=== PATIENT | female | born 2000 | race Caucasian/White ===

== ENCOUNTER 2021-11-07 12:46 | Inpatient (IN) | payer SELFPAY ==
[2021-11-07 12:46] VITALS: BP 115/74; PULSE 56; RESP 14; TEMP 36.6; O2SAT 100
[2021-11-07 12:48] VITALS: BMI 21.4
[2021-11-07] MEDS: hyDROXYzine 25 mg Capsule 50 MG PO (13:07)
[2021-11-07 14:00] VITALS: BP 115/74; PULSE 56; RESP 14; TEMP 36.6
[2021-11-07] MEDS: cephALEXin 500 mg Capsule PO (17:30)
--- NOTE | 2021-11-07 18:08 | PC.NURSE ---
PT WAS TEARFUL UPON ADMISSION TO THE NPU. PT RECEIVED VISTERIL. AFTERWARD PT WAS RESTING IN BED. DURING GROUP PT EXPRESSED THIS HELPED HER. THIS AFTERNOON PT TALKED TO HER MOTHER ON THE PHONE AND PT TOLD THIS NURSE THAT IT WENT BETTER THAN EXPECTED.
--- NOTE | 2021-11-07 18:09 | PC.NURSE ---
ADMISSION NOTE PT IS A 21 YEAR OLD FEMALE WHO CAME A DIRECT ADMIT FROM [facility] FOR SI. PT HAS HAD A ROUGH TIME OVER THE PAST 2 WEEKS. WHEN THE PT ARRIVED TO THE ED SHE TOLD THE TRIAGE NURSE SHE HAD ACTIVE SUICIDE THOUGHTS AND WANTED TO FILL HER BATHTUB WITH WATER AND DROWN HERSELF. THREE WEEKS PRIOR PT TOOK 4 CAPSULES OF ADVIL, PT STATES SHE KNEW IT WOULD NOT HURT HER BUT HAD SUICIDAL THOUGHTS WHEN SHE DID IT. PT DENIES DRUG OR ALCOHOL USE. UDS NEGATIVE, BAL NEGATIVE. PT WAS GIVEN A PRESCRIPTION FOR KEFLEX FOR A UTI AND THIS HAS BEEN RESTARTED UPON ARRIVAL TO THE NPU. PT IS VERY TEARFUL AND ANXIOUS UPON ADMIT.
[2021-11-07 19:55] VITALS: BP 99/56; PULSE 64; RESP 16; TEMP 36.7; O2SAT 100
[2021-11-08 06:00] VITALS: BP 96/56; PULSE 85; RESP 17; TEMP 36.8; O2SAT 99
[2021-11-08] MEDS: cephALEXin 500 mg Capsule PO ×2 (08:47→18:03)
--- NOTE | 2021-11-08 09:05 | PC.NURSE ---
APPEARS FLAT AND GUARDED UPON MEETING. PT IS ALERT AND ORIENTED TIMES 4 AND MAKES NEEDS KNOWN. DENIES PAIN. DENIES SI/HI AND AVH AT THIS TIME. EDUCATED PT ON ANXIETY MEDS AND IF SHE BECOMES ANXIOUS TO LET STAFF KNOW. VERBALIZED UNDERSTANDING. ALL QUESTIONS ANSWERED AND SUPPORT VOICED.
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
[2021-11-08 14:00] VITALS: BP 125/70; PULSE 76; RESP 18; TEMP 36.6; O2SAT 98
--- NOTE | 2021-11-08 17:03 | PC.NURSE ---
NEW ORDERS DR. CORTEZ GAVE VERBAL ORDERS TO START PROZAC 20 MG DAILY, FIRST DOSE TO START TODAY. EDUCATION PROVIDED TO PT, VERBALIZED UNDERSTANDING.
[2021-11-08] MEDS: fluoxetine 20 mg Capsule PO (18:04)
[2021-11-08 19:32] VITALS: BP 100/65; PULSE 61; RESP 16; TEMP 36.7; O2SAT 100
[2021-11-09 06:00] VITALS: BP 105/66; PULSE 61; RESP 16; TEMP 36.6; O2SAT 100
[2021-11-09] MEDS: fluoxetine 20 mg Capsule PO (09:29)
[2021-11-09] MEDS: cephALEXin 500 mg Capsule PO (09:29)
[2021-11-09 10:52] VITALS: BP 105/66; PULSE 61; RESP 16; TEMP 36.6; O2SAT 100
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
== END 2021-11-09 13:27 | disposition home or self-care (01) | DRG 881 ==
PROVIDERS: Admitting Provider Psychiatry & Neurology Psychiatry; Visit Provider Psychiatry & Neurology Psychiatry
DX: F32.9 Major depressive disorder, single episode, unspecified (principal); R45.851 Suicidal ideations; F43.25 Adjustment disorder with mixed disturbance of emotions and conduct; F41.1 Generalized anxiety disorder; Z62.811 Personal history of psychological abuse in childhood; Z63.0 Problems in relationship with spouse or partner; Z81.8 Family history of other mental and behavioral disorders; Z81.4 Family history of other substance abuse and dependence; Z73.89 Other problems related to life management difficulty
CPT/HCPCS: 97150; 97165